=== PATIENT | male | born 1935 | race Caucasian/White ===

== ENCOUNTER 2017-11-08 11:43 | Emergency (ER) | payer OTHER, BC ==
[~2017-11-08] VITALS: Ht 170.2 cm; Wt 66.7 kg
[~2017-11-08 11:43] MED LIST: ASPIR 8181 M1 PO; CRESTOR40 MG PO; DIOVAN80 MG PO; LOPRESSOR25 MG PO; TRICOR145 MG PO; ZETIA10 MG PO
[2017-11-08 12:57] LABS: BASOPHIL (%) 0.8 % (0-1); EOSINOPHIL (%) 3.3 % (0-5); EOSINOPHIL COUNT 0.2 K/uL (0-0.3); HEMOGLOBIN 13.3 G/DL (12.5-16.6); LYMPHOCYTE COUNT 1.5 K/uL (1.0-2.8); MCH 30.6 PG (29.0-34.0); MCHC 33.3 G/DL (30.0-36.0); MCV 92.2 FL (86-99); MONOCYTE (%) 10.6 % (3-12); MONOCYTE COUNT 0.5 K/uL (0-0.8); NEUTROPHIL (%) 54.3 % (45-76); NEUTROPHIL COUNT 2.7 K/uL (1.8-6.4); PLATELET COUNT 141 K/uL (156-360); RBC DIS.WIDTH-CV 12.9 % (11.8-14.6); RBC DIS.WIDTH-SD 43.5 % (39-53); RED BLOOD COUNT 4.34 M/uL (4.00-5.50); WHITE BLOOD COUNT 4.9 K/uL (4.1-10.2)
[2017-11-08 13:08] LABS: CHLORIDE 109 mEq/L (99-109); POTASSIUM 4.6 mEq/L (3.7-5.4); SODIUM 142 mEq/L (136-147)
[2017-11-08 13:09] LABS: GLUCOSE 87 mg/dL (70-99)
[2017-11-08 13:13] LABS: CREATININE 1.4 mg/dL (0.6-1.3); GFR ESTIMATE (CALCULATED) 52 mL/min/ (58.99-99999)
[2017-11-08 13:14] LABS: UREA NITROGEN (BUN) 23 mg/dL (9-23)
[2017-11-08] MEDS ORDERED: ANTIVERT25 MG PO (16:16)
[2017-11-08 16:55] VITALS: BP 112/64
== END 2017-11-08 17:02 | disposition home or self-care (01) ==
LOC: EME 11:43
PROVIDERS: Emergency Medicine
DX: R42 Dizziness and giddiness (principal); I10 Essential (primary) hypertension; E78.5 Hyperlipidemia, unspecified; Z95.1 Presence of aortocoronary bypass graft; Z79.82 Long term (current) use of aspirin
CPT/HCPCS: 70450; 70551; 71045; 80048; 85025; 93005; 99281; 99285